=== PATIENT | male | born 1985 | race Caucasian/White ===

== ENCOUNTER → 2019-09-13 19:44 | Outpatient (CLI) | payer OTHER, SELFPAY | PROVIDERS: Visit Provider Physician Assistant | DX: L03.032 Cellulitis of left toe (principal) | CPT/HCPCS: 87070; 87075; 87077; 87147; 87186; 87205 ==

== ENCOUNTER → 2024-04-23 09:02 | Outpatient (CLI) | payer OTHER, SELFPAY ==
--- NOTE | 2024-04-23 09:05 | DI.ECHO.S_ITS ---
[facility] : : [address] : : [place] : : [id number] : : Phone: [phone] Echocardiogram Report + + :Name: FREDDY RUANO Study Date: 04/23/2024 Height: 69 in : :[facility] ReadingLocation: Weight: 222 lb : : Gender: Male BSA: 2.2 m2 : :: 1985 Age: 39 yrs BP: 148/97 mmHg: :Reason For Study: SYNCOPE AND COLLAPSE : :Ordering Physician: NICKOLAS, : :MARJORIE Performed By: Jason Bates : :Referring: UNSPECIFIED : + + Interpretation Summary 1. The left ventricular contractility is borderline. Estimated ejection fraction is approximately 50 to 55% with no segmental wall motion abnormalities. No LVH. Impaired relaxation. 2. The right ventricular contractility is normal. 3. All cardiac chambers are of normal size. 4. No significant valvular abnormalities noted. 5. No obvious intracardiac shunts. 6. No obvious intracardiac masses nor thrombi. 7. No hemodynamically significant pericardial effusion present. Conclusion: Low normal left ventricular systolic function without significant structural abnormalities. Procedure: A two-dimensional transthoracic echocardiogram with color flow and Doppler was performed. The study quality was technically adequate. There is no prior echocardiogram noted for this patient. The patient was in sinus rhythm with heart rates between 69-86 bpm during the exam. Left Ventricle: The left ventricle is normal in size and wall thickness. The ejection fraction is estimated to be 50-55%. Right Ventricle: The right ventricle is normal size. The right ventricular systolic function is normal. Atria: The left atrial size is normal. Right atrial size is normal. The interatrial septum grossly appears intact with no obvious evidence for an atrial septal defect. Mitral Valve: The mitral valve is normal. There is no mitral valve stenosis. There is trace mitral regurgitation. Aortic Valve: The aortic valve is trileaflet. There is no aortic valve stenosis. No aortic regurgitation is present. Tricuspid Valve: The tricuspid valve is normal. There is no tricuspid stenosis. There is a trace or physiologic amount of tricuspid regurgitation. Pulmonic Valve: The pulmonic valve is not well visualized. There is no pulmonic valvular stenosis. There is a trace or physiologic amount of pulmonic regurgitation. Great Vessels: The aortic root is normal size. The dimensions of the ascending aorta are normal. The inferior vena cava was not visualized. Pericardium/ Pleura There is no pericardial effusion. There is no pleural effusion. MMode/2D Measurements & Calculations LVIDd: 4.9 cm LVOT diam: 2.1 cm LVIDs: 3.6 cm Ao root diam: 3.4 cm FS: 26.1 % asc Aorta Diam: 3.6 cm IVSd: 1.0 cm LVPWd: 0.78 cm LV peterson. diameter/BSA (cm/m^2): 2.3 LV sys. diameter/BSA (cm/m^2): 1.7 LA A2 area: 14.3 cm2 RA long axis: 4.2 cm LA A4 area: 15.1 cm2 RA area: 10.0 cm2 LA length (vol): 4.9 cm RA vol: 20.2 ml LA vol: 37.8 ml RA : 9.4 ml/m2 LA vol index: 17.5 ml/m2 RVD1 (basal): 3.6 cm TAPSE: 1.9 cm Doppler Measurements & Calculations Ao V2 max: 131.4 cm/sec MV E max davian: 52.5 cm/sec Ao V2 mean: 90.9 cm/sec MV A max davian: 43.7 cm/sec Ao max P.9 mmHg MV E/A: 1.2 Ao mean P.8 mmHg Med Peak E' Davian: 8.0 cm/sec Ao V2 VTI: 24.9 cm E/E' med: 6.5 Lat Peak E' Davian: 7.2 cm/sec E/E' lat: 7.3 E/e' average: 6.9 MV dec time: 0.29 sec PA V2 max: 134.0 cm/sec PA V2 mean: 97.7 cm/sec PA mean P.3 mmHg PA pr(Accel): 43.0 mmHg Reading Physician:
== END ==
DX: R55 Syncope and collapse (principal)
CPT/HCPCS: 93306